=== PATIENT | male | born 1990 | race American Indian/Alaskan Native ===

== ENCOUNTER 2016-08-06 01:00 | Emergency (ER) | payer OTHER ==
[2016-08-06 02:02] VITALS: BP 124/82
[2016-08-06] MEDS ORDERED: NORCO 5/325 PO ONE (04:57)
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
== END 2016-08-06 06:00 | disposition home or self-care (01) ==
LOC: ED 01:00
DX: R07.89 Other chest pain (principal); Z87.891 Personal history of nicotine dependence; V89.2XXA Person injured in unspecified motor-vehicle accident, traffic, initial encounter; Y93.89 Activity, other specified; Y99.8 Other external cause status; Y92.89 Other specified places as the place of occurrence of the external cause
CPT/HCPCS: 71250; 72131

== ENCOUNTER 2017-06-11 06:48 | Emergency (ER) | payer OTHER ==
[2017-06-11] MEDS ORDERED: MOTRIN PO ONE (08:00)
[2017-06-11] MEDS ORDERED: FLEXERIL PO ONE (08:00)
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
[2017-06-11 09:36] VITALS: BP 107/77
== END 2017-06-11 09:36 | disposition home or self-care (01) ==
LOC: ED 06:48
DX: M54.5 Low back pain (principal); V49.49XA Driver injured in collision with other motor vehicles in traffic accident, initial encounter; Y93.89 Activity, other specified; Y92.89 Other specified places as the place of occurrence of the external cause; Y99.8 Other external cause status
CPT/HCPCS: 72100; 99283

== ENCOUNTER 2017-10-27 09:35 | Emergency (ER) | payer OTHER ==
[2017-10-27 09:41] VITALS: BP 138/81
--- NOTE | 2017-10-27 10:32 | XRay Report ---
Left hand 3 views: X. History: Second and third finger crush injury. Findings: No bony or articular abnormality. No fracture dislocation or periosteal reaction. Impression: No evidence of acute fracture.
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
[2017-10-27] MEDS ORDERED: NORCO 5/325 PO ONE (11:49)
[2017-10-27] MEDS ORDERED: POLYSPORIN TP ONE (11:50)
[2017-10-27] MEDS ORDERED: TRIPLE ANTIBIOTIC TP ONE (11:51)
== END 2017-10-27 12:07 | disposition home or self-care (01) ==
LOC: ED 09:35
DX: S69.92XA Unspecified injury of left wrist, hand and finger(s), initial encounter (principal); W23.0XXA Caught, crushed, jammed, or pinched between moving objects, initial encounter; Y93.89 Activity, other specified; Y92.89 Other specified places as the place of occurrence of the external cause; Y99.8 Other external cause status
CPT/HCPCS: 99284; A6250

== ENCOUNTER 2018-06-27 07:03 | Emergency (ER) | payer SELFPAY ==
[2018-06-27] MEDS ORDERED: TORADOL IV ONE (09:31)
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
--- NOTE | 2018-06-27 10:11 | XRay Report ---
AP CHEST: HISTORY: Left chest pain AP view of the chest demonstrates a normal mediastinal and cardiac contour with clear lungs and normal bony and soft tissue structures. IMPRESSION: Unremarkable AP chest.
--- NOTE | 2018-06-27 10:11 | XRay Report ---
LEFT SHOULDER: History: Left shoulder pain. Routine views demonstrate normal bony and soft tissue structures with normal joint alignment of the shoulder. IMPRESSION: Normal study.
[2018-06-27 10:45] LABS: INR 0.96 (0.87-1.13)
[2018-06-27 10:46] LABS: Partial Thromboplastin Time 27.5 Sec. (24.2-36.6)
[2018-06-27 10:55] LABS: Hematocrit 45.8 % (35.5-45.6); Hemoglobin 15.5 gm/dl (11.8-15.2); Mean Corpuscular HGB Conc 34 % (32-34); Mean Corpuscular Hemoglobin 31 pg (28-32); Mean Corpuscular Volume 92 fl (84-94); Red Cell Distribution Width 12.9 % (13.2-15.2)
[2018-06-27 10:56] LABS: Platelet Count 228 K/mm3 (140-440)
[2018-06-27 10:59] LABS: BUN/Creatinine Ratio 5; Blood Urea Nitrogen 6 mg/dL (9-20); Calcium 9.5 mg/dL (8.4-10.2); Hemolysis Index 52
[2018-06-27 11:26] LABS: Total Cells Counted 100
[2018-06-27 11:27] LABS: Giant Platelets Few; RBC Morphology Normal
[2018-06-27 11:41] VITALS: BP 117/82
== END 2018-06-27 11:40 | disposition home or self-care (01) ==
LOC: ED 07:03
DX: S46.912A Strain of unspecified muscle, fascia and tendon at shoulder and upper arm level, left arm, initial encounter (principal); R07.89 Other chest pain; F17.200 Nicotine dependence, unspecified, uncomplicated; V49.9XXA Car occupant (driver) (passenger) injured in unspecified traffic accident, initial encounter; Y93.89 Activity, other specified; Y99.8 Other external cause status; Y92.410 Unspecified street and highway as the place of occurrence of the external cause
CPT/HCPCS: 36415; 71045; 73030; 80048; 84484; 85007; 85025; 85379; 85610; 85730; 93005; 93010; 96374; 99284; J1885

== ENCOUNTER 2019-03-12 23:02 | Emergency (ER) | payer OTHER ==
[2019-03-12 23:33] VITALS: BP 122/82
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
[2019-03-13] MEDS ORDERED: NORCO 7.5/325 PO ONE (00:56)
[2019-03-13] MEDS ORDERED: IBUPROFEN PO ONE (00:56)
[2019-03-13] MEDS ORDERED: ZOFRAN ODT PO ONE (00:56)
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
== END 2019-03-13 01:28 | disposition home or self-care (01) ==
LOC: ED 23:02
DX: M54.2 Cervicalgia (principal); M54.6 Pain in thoracic spine; Z79.1 Long term (current) use of non-steroidal anti-inflammatories (NSAID); Z79.899 Other long term (current) drug therapy; V89.2XXA Person injured in unspecified motor-vehicle accident, traffic, initial encounter; Y93.89 Activity, other specified; Y92.488 Other paved roadways as the place of occurrence of the external cause; Y99.8 Other external cause status
CPT/HCPCS: 72040; 72072; 99283; Q0162

== ENCOUNTER 2019-04-18 12:58 | Emergency (ER) | payer OTHER ==
[2019-04-18 13:29] VITALS: BP 119/76
--- NOTE | 2019-04-18 13:33 | Event Note ---
ED Screening Note Date of service: 04/18/19 Time: 13:28 ED Screening Note: This initial assessment/diagnostic orders/clinical plan/treatment(s) is/are subject to change based on patients health status, clinical progression and re- assessment by fellow clinical providers in the ED. Further treatment and workup at subsequent clinical providers discretion. Patient/guardian urged not to elope from the ED as their condition may be serious if not clinically assessed and managed. Initial orders include:
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
== END 2019-04-18 13:57 | disposition home or self-care (01) ==
LOC: ED 12:58
DX: S16.1XXA Strain of muscle, fascia and tendon at neck level, initial encounter (principal); S39.012A Strain of muscle, fascia and tendon of lower back, initial encounter; V49.49XA Driver injured in collision with other motor vehicles in traffic accident, initial encounter; Y93.89 Activity, other specified; Y92.488 Other paved roadways as the place of occurrence of the external cause; Y99.8 Other external cause status
CPT/HCPCS: 99282